=== PATIENT | male | born 1975 ===

== ENCOUNTER → 2018-06-24 21:28 | Outpatient (REF) | payer OTHER, SELFPAY ==
[2018-06-25 01:01] LABS: Calcium 9.7 mg/dL (8.4-10.2); HEMOLYSIS < 15 (0-50); Phosphorous 3.6 mg/dL (2.5-4.5); Potassium 4.4 mmol/L (3.4-5.1); Sodium 139 mmol/L (137-145)
[2018-06-25 01:17] LABS: Vitamin D 25 Hydroxy (D3) 44.9 ng/mL (30.0-100.0)
[2018-06-25 01:43] LABS: HEMOLYSIS < 15 (0-50); Iron 121 ug/dL (49-181)
[2018-06-25 01:55] LABS: Percent Iron Saturation 39 % (20-50); Total Iron Binding Capacity 313 ug/dL (261-462); Transferrin 250 mg/dL (206-381)
[2018-06-25 02:04] LABS: Free T3, Triiodothyronine Free 4.42 pg/mL (2.77-5.27); Free T4, Direct Thyroxine 1.05 ng/dL (0.78-2.19)
[2018-06-25 02:17] LABS: Thyroid Stimulating Hormone 0.08 uIU/mL (0.47-4.68)
[2018-06-26 14:05] LABS: Thyroid Peroxidase Antibodies 567 IU/mL (< 9)
[2018-06-27 19:49] LABS: Testosterone, Free 1.49 ng/dL (0.87-5.47)
[2018-06-28 12:31] LABS: Triiodothyronine T3 Reverse 24 ng/dL (8-25)
[2018-06-29 07:57] LABS: Vitamin A 47 mcg/dL (38-98)
[2018-06-29 09:03] LABS: Selenium 229 mcg/L (63-160)
[2018-06-29 10:36] LABS: Alpha-Tocopherol 12.1 mg/L (5.7-19.9); Gamma-Tocopherol < 1.0 mg/L (< 4.4)
[2018-06-29 14:40] LABS: Methylmalonic Acid 190 nmol/L (87-318)
== END ==
LOC: LAB 21:28
PROVIDERS: Visit Provider Naturopath
DX: E06.3 Autoimmune thyroiditis (principal); E72.12 Methylenetetrahydrofolate reductase deficiency; N46.9 Male infertility, unspecified
CPT/HCPCS: 36415; 82306; 82310; 82525; 83540; 83550; 83921; 84100; 84132; 84255; 84295; 84402; 84439; 84443; 84446; 84481; 84482; 84590; 84630; 86376

== ENCOUNTER → 2018-08-01 22:08 | Outpatient (ROUT) | payer OTHER, SELFPAY ==
[2018-08-02 03:40] LABS: HEMOLYSIS < 15 (0-50); Iron 117 ug/dL (49-181)
[2018-08-02 03:51] LABS: Percent Iron Saturation 36 % (20-50); Total Iron Binding Capacity 323 ug/dL (261-462); Transferrin 250 mg/dL (206-381)
[2018-08-02 03:58] LABS: Free T3, Triiodothyronine Free 4.25 pg/mL (2.77-5.27); Free T4, Direct Thyroxine 0.78 ng/dL (0.78-2.19)
[2018-08-02 04:12] LABS: Thyroid Stimulating Hormone 6.06 uIU/mL (0.47-4.68)
[2018-08-05 10:54] LABS: Testosterone, Free 1.69 ng/dL (0.87-5.47)
[2018-08-06 14:57] LABS: Thyroid Peroxidase Antibodies 471 IU/mL (< 9)
[2018-08-06 17:06] LABS: Triiodothyronine T3 Reverse 13 ng/dL (8-25)
== END ==
PROVIDERS: Visit Provider Naturopath
DX: R06.3 Periodic breathing (principal); E83.10 Disorder of iron metabolism, unspecified; E34.8 Other specified endocrine disorders; R79.89 Other specified abnormal findings of blood chemistry
CPT/HCPCS: 36415; 83540; 83550; 84402; 84439; 84443; 84481; 84482; 86376; 86664; 86665